=== PATIENT | female | born 1955 | race Caucasian/White ===

== ENCOUNTER 2016-10-23 05:18 | Observation (INO) | payer OTHER ==
[2016-10-23] MEDS ORDERED: ONDANSETRON 4 MG/2 ML VIAL IVP ONE (05:28)
[2016-10-23] MEDS ORDERED: NS 500 ML IV ONE (05:28)
--- NOTE | 2016-10-23 05:28 | EDPHY ---
H & P Stated Complaint: irregular HR, nausea, dizzy HPI/ROS: HPI CHIEF COMPLAINT: Chest discomfort, nausea, lightheadedness, irregular heart rate HISTORY OF PRESENT ILLNESS: this patient very pleasant 61-year-old female, she does have significant past medical history for GERD, presents to the emergency room with sudden onset at 3:00 a.m. she woke up with a discomfort describes a fullness in her chest with associated nausea, anxiety and noticed that her pulse was very irregular. She felt lightheaded. She tells me over the past few months that she has had some intermittent chest discomfort and at 1 point the pain radiated down her left arm. She did make an appointment with Cardiology however that is upcoming. She does tell me that she has a family history of coronary artery disease with an TN in her dad at age 55. She has never had a stress test or a cardiac evaluation. upon arrival here in the emergency room she appears anxious, she is complaining of discomfort in her chest described as a fullness, and nausea. Past Medical History:GERD Past Surgical History: denies significant surgical history Social History: denies use of drugs alcohol tobacco products, works as an RN at [employer] Family History: noncontributory ROS REVIEW OF SYSTEMS: A comprehensive 10 point review of systems is otherwise negative aside from elements mentioned in the history of present illness. Exam Constitutional triage nursing summary reviewed, vital signs reviewed, awake/ alert. Eyes normal conjunctivae and sclera, EOMI, PERRLA. HENT normal inspection, atraumatic, moist mucus membranes, no epistaxis, neck supple/ no meningismus, no raccoon eyes. Respiratory clear to auscultation bilaterally, normal breath sounds, no respiratory distress, no wheezing. Cardiovascular rate normal, regular rhythm, no murmur, no edema, distal pulses normal. Gastrointestinal soft, non-tender, no rebound, no guarding, normal bowel sounds, no distension, no pulsatile mass. Genitourinary no CVA tenderness. Musculoskeletal no midline vertebral tenderness, full range of motion, no calf swelling, no tenderness of extremities, no meningismus, good pulses, neurovascularly intact. Skin pink, warm, & dry, no rash, skin atraumatic. Neurologic awake, alert and oriented x 3, AAOx3, moves all 4 extremities equally, motor intact, sensory intact, CN II-XII intact, normal cerebellar, normal vision, normal speech. Psychiatric normal mood/affect. Heme/Lymph/Immune no lymphadenopathy. Differential diagnosis includes but is not limited to: ACS, atypical chest pain , pneumothorax, pneumonia, pulmonary embolism, aortic dissection, congestive heart failure, tumor, musculoskeletal pain, esophageal pain, GERD, peptic ulcer disease, pancreatitis Medical Decision Making:This patient had an IV established obtain blood work she will have a chest x-ray, EKG, cardiac marker. given her nausea and discomfort chest should be given nitroglycerin full-dose aspirin IV fluids and Zofran. Re-evaluation: EKG interpretation by me on record in [employer] system. Impression Time of EKG 5:36 a.m., this is sinus rhythm rate in 91, there is subtle ST flattening in lead 2 3 AVF there are P waves present this EKG. There is a sinus arrhythmia noted. Otherwise I do not appreciate acute ischemic changes specifically there is no ST elevation, there is also noted to be slight ST depression in V5 and V4. ED x-ray Chest one view: negative for acute cardiopulmonary disease. Image interpreted by myself. 0643: I spoke with the hospitalist service Dr. Breaux. who will see and admit this patient. Reason for admission is chest fullness relieved by nitroglycerin. In the emergency room she did have a nitroglycerin which improved her chest discomfort. She was given full-dose aspirin. She is now resting comfortably and chest pain free. Her EKG is not normal and does show some very subtle ST depression V4 V5 lead 2, 3 and aVF concerning for possible ischemia. Given her family history of cardiac disease and history over the past few months of discomfort in her chest and now this situation in the emergency room with chest discomfort with EKG changes and relieved by nitro I feel that it is best to admit her for rule out ACS. For cardiology to see. Source: Patient - Personal History Current Tetanus Diphtheria and Acellular Pertussis (TDAP): Yes - Medical/Surgical History Hx Asthma: No Hx Chronic Respiratory Disease: No Hx Diabetes: No Hx Cardiac Disease: No Hx Renal Disease: No Hx Cirrhosis: No Hx Alcoholism: No Hx HIV/AIDS: No Hx Splenectomy or Spleen Trauma: No Other PMH: R knee surgery - Social History Smoking Status: Never smoked Constitutional: Initial Vital Signs Temperature (C) 36.8 C 10/23/16 05:23 Heart Rate 93 10/23/16 05:23 Respiratory Rate 20 10/23/16 05:23 Blood Pressure 139/103 H 10/23/16 05:23 O2 Sat (%) 95 10/23/16 05:23 O2 Delivery Mode Nasal Cannula O2 (L/minute) 2 Allergies/Adverse Reactions: diphenhydramine HCl [From Benadryl] Allergy (Verified 10/23/16 05:22) Sulfa (Sulfonamide Antibiotics) Allergy (Verified 10/23/16 05:22) Home Medications: Medication Instructions Recorded Omeprazole [Prilosec 20 mg] 20 mg PO DAILY 05/13/16 buPROPion SR [Wellbutrin 150mg SR 150 mg PO DAILY 05/13/16 (*)] Aspirin [Aspirin 325 mg (*)] 325 mg PO DAILY 10/23/16 SUMAtriptan [Imitrex 50 MG (*)] 100 mg PO DAILY PRN 10/23/16 Medical Decision Making - Data Points Laboratory Results: Laboratory Results 10/23/16 05:02 10/23/16 05:02 Medications Given: Discontinued Medications Aspirin Buffered (Aspirin Ec) 325 mg PO ONCE ONE Stop: 10/23/16 07:04 Last Admin: 10/23/16 08:30 Dose: 325 mg Sodium Chloride (Ns) 500 mls @ 0 mls/hr IV ONCE ONE PRN Reason: As Directed Stop: 10/23/16 05:29 Last Admin: 10/23/16 05:30 Dose: 500 mls Nitroglycerin (Nitrostat) 0.4 mg SL EDNOW ONE Stop: 10/23/16 05:35 Last Admin: 10/23/16 05:40 Dose: 0.4 mg Ondansetron HCl (Zofran) 4 mg IVP EDNOW ONE Stop: 10/23/16 05:29 Last Admin: 10/23/16 05:30 Dose: 4 mg Departure - Departure Disposition: [facility] Acute Clinical Impression: Chest pain Qualifiers: Chest pain type: unspecified Qualifier Code: (R07.9) Chest pain, unspecified Condition: Fair
[2016-10-23] MEDS ORDERED: NITROGLYCERIN 0.4 MG BTL SL ONE ×2 (05:34→19:14)
--- NOTE | 2016-10-23 05:38 | CPEKG ---
Heart Rate: 91 RR Interval: 659 P-R Interval: 152 QRSD Interval: 90 QT Interval: 364 QTC Interval: 448 P [place]: 67 QRS [place]: 56 T Wave [place]: 4 EKG Severity - ABNORMAL ECG - EKG Impression: SINUS RHYTHM EKG Impression: SUPRAVENTRICULAR BIGEMINY EKG Impression: LOW VOLTAGE IN FRONTAL LEADS Electronically Signed By: John Loomis 25-Oct-2016 08:36:10
[2016-10-23 05:55] LABS: % IMMATURE GRANULYOCYTES 0.2 % (0.0-1.1); ABSOLUTE IMMATURE GRANULOCYTES 0.01 10^3/uL (0.00-0.10); ADD DIFF? NO; ADD MORPH? NO; ADD SCAN? NO; ATYPICAL LYMPHOCYTE FLAG 10 (0-99); FRAGMENT RBC FLAG 0 (0-99); HEMATOCRIT 41.5 % (38.0-47.0); HEMOGLOBIN 14.4 g/dL (12.6-16.3); LEFT SHIFT FLG 0 (0-99); LIPEMIA HEMOLYSIS FLAG 90 (0-99); MEAN CELL HEMOGLOBIN 32.4 pg (27.9-34.1); MEAN CELL HEMOGLOBIN CONCENTR. 34.7 g/dL (32.4-36.7); MEAN CELL VOLUME 93.5 fL (81.5-99.8); MEAN PLATELET VOLUME 10.4 fL (8.7-11.7); PLATELET CLUMPS FLAG 10 (0-99); PLATELET COUNT 253 10^3/uL (150-400); RED BLOOD CELL COUNT 4.44 10^6/uL (4.18-5.33); RED CELL DISTRIBUTION WIDTH 12.1 % (11.5-15.2)
[2016-10-23 06:05] LABS: INR 0.91 (0.83-1.16); PROTIME(PATIENT) 12.1 SEC (12.0-15.0)
[2016-10-23 06:06] LABS: APTT 25.2 SEC (23.0-38.0)
[2016-10-23 06:17] LABS: ALANINE AMINOTRANSFERASE 36 IU/L (9-52); ALBUMIN 4.7 g/dL (3.5-5.0); ALKALINE PHOSPHATASE 95 IU/L (38-126); ANION GAP 14 mEq/L (8-16); ASPARTATE AMINOTRANSFERASE 27 IU/L (14-46); BILIRUBIN,TOTAL 0.7 mg/dL (0.1-1.4); BILIRUBIN-CONJUGATED 0.6 mg/dL (0.0-0.5); BILIRUBIN-UNCONJUGATED 0.1 mg/dL (0.0-1.1); CALCIUM 9.3 mg/dL (8.5-10.4); CARBON DIOXIDE 24 mEq/l (22-31); CHLORIDE 106 mEq/L (97-110); CREATININE 0.7 mg/dL (0.6-1.0); GLOMERULAR FILTRATION RATE > 60; GLUCOSE 89 mg/dL (70-100); SODIUM 144 mEq/L (134-144); TOTAL PROTEIN 7.9 g/dL (6.3-8.2)
[2016-10-23 06:29] LABS: CREATINE KINASE-MB FRACTION 0.95 ng/mL (0-3.19); TROPONIN I < 0.012 ng/mL (0-0.034)
[2016-10-23] MEDS ORDERED: ONDANSETRON 4 MG/2 ML VIAL IVP PRN (07:01)
[2016-10-23] MEDS ORDERED: ACETAMINOPHEN 325 MG TAB PO PRN (07:01)
[2016-10-23] MEDS ORDERED: ONDANSETRON DISINTEGRATING 4 MG TAB PO PRN (07:01)
[2016-10-23] MEDS ORDERED: PROMETHAZINE HCL 25 MG/ML INJ IVP PRN (07:01)
[2016-10-23] MEDS ORDERED: ASPIRIN EC 325 MG TAB PO ONE (07:03)
--- NOTE | 2016-10-23 07:49 | GHP ---
[f rep st] HISTORY AND PHYSICAL DATE OF ADMISSION: 10/23/2016 DATE OF EVALUATION: 10/23/2016 CHIEF COMPLAINT: Chest fullness. HISTORY OF PRESENT ILLNESS: A 61-year-old female, who awoke at 3 a.m. with a sensation of palpitatio ns, tachycardia, chest fullness. 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 This co ntinued for a few hours until she decided to come into the hospital. On arrival to the emergency dep artment, she received Zofran, as well as nitroglycerin and her symptoms almost immediately abated. T hese were associated with some nausea. No vomiting. No shortness of breath. No lightheadedness. N o radiation of the discomfort. She already has an outpatient appointment to see Dr. Stock in November. This is because she had p reviously awoken with 2 episodes of chest pain radiating to her left arm. These have not been as sev ere as what she experienced today. PAST MEDICAL/SURGICAL HISTORY: 1. GERD. 2. Migraines 2 years ago, then an additional migraine about 1 month ago. 3. Right TKA. MEDICATIONS: Please see medication reconciliation. ALLERGIES: Benadryl and sulfa. FAMILY HISTORY: Father had an MD at age 55. SOCIAL HISTORY: She occasionally drinks. She does not smoke. She is an employee in the hospital. REVIEW OF SYSTEMS: A 10-point review of systems is conducted and is negative except for HPI. PHYSICAL EXAM: VITAL SIGNS: Blood pressure is 106/82, heart rate 84, respiration rate 16, saturatin g 100% on 2 L. Temperature 36.8. GENERAL: The patient is a very pleasant female who is resting in bed comfortably in no acute distress. HEENT: Shows her to be normocephalic, atraumatic. CARDIOVASC ULAR: Regular rate and rhythm. No murmurs, rubs, or gallops. No elevated JVD. No lower extremity edema. PULMONARY: Lungs clear to auscultation bilaterally. She is not in any respiratory distress. ABDOMEN: Shows her to be soft, nontender, nondistended. SKIN: No rash. : No Sims. NEUROLOG IC: Shows her to be alert and oriented x3. She is moving all extremities. PSYCHIATRIC: Normal moo d and affect. LABS: Basic metabolic panel is normal. Troponin is negative. LFTs are normal. INR is 0.91. CBC i s normal. DATA: 1. Chest x-ray, which I personally reviewed and interpreted, shows nothing acute. 2. EKG, which I personally reviewed and interpreted, shows mild ST depressions in leads II, III, F. Otherwise, she has sinus rhythm. She has a few PACs. IMPRESSION AND PLAN: 1. Chest pain: Trend troponins. Monitor on telemetry. She has a notable family history. Will con sult Cardiology. Further recommendations pending her clinical course. 2. Palpitations: Will monitor her on telemetry. She has premature atrial contractions seen on her EKG. 3. Gastroesophageal reflux disease: Prilosec. 4. Code status is full. 5. Venous thromboembolism risk is low. /[id number]/MODL
--- NOTE | 2016-10-23 09:13 | DX ---
Portable Chest at 0539 hours History: Chest pain. Comparison: None available. Findings: There is minimal central peribronchial thickening without focal consolidation, pneumothorax , or pleural effusion. Heart size is normal. Right epicardial fat pad is noted. The bones are normal. Radiopaque structure overlying the neck just left of midline is likely related to artifact external to the patient. Impression: 1. Probable mild bronchitis/airways disease. 2. Radiopaque foreign object overlying the left neck, most likely related to artifact external to the patient.
[2016-10-23 11:48] LABS: CHOLESTEROL 248 mg/dL (140-220); CHOLESTEROL/HDL RATIO 4.28 RATIO (1.00-4.44); HIGH DENSITY LIPOPROTEIN 58 mg/dL (40-85); LDL/HDL RATIO 2.57 RATIO (1.00-3.22); LOW DENSITY LIPOPROTEIN 149 mg/dL (80-100); NON-HIGH DENSITY LIPOPROTEIN 190 mg/dL (90-129); TRIGLYCERIDE 209 mg/dL (35-135); VERY LOW DENSITY LIPOPROTEINS 41 mg/dL (8-25)
--- NOTE | 2016-10-23 11:55 | GCON ---
[f rep st] CONSULTATION CARDIOLOGY CONSULTATION DATE OF CONSULTATION: 10/23/2016 CHIEF COMPLAINT: Chest pain and palpitations. HISTORY OF PRESENT ILLNESS: We are asked by Dr. Breaux to visit with the patient. 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 She does have a family history, with her father having an MD at age 55. For the past 2 months, she has had 3 separate episodes of chest discomfort. The 1st woke her up from sleep and she noticed left chest pain with radiation to the left arm. Symptoms lasted for about 5 minute. A few weeks later, she had a similar episode waking her up from sleep with chest pain radiating to the arm. This lasted 10 minutes. Early this morning, around 3:00 a.m., she woke up with chest fullness, nausea, and palpitations. She felt generally unwell. She did not have abdominal pain, nor did she vomit. No diarrhea. She did not feel diaphoretic. Symptoms waxed and waned for approximately 2 hours. They were not relieved by drinking water. She therefore presented to the Emergency Department. In the department, she received Zofran and nitroglycerin which essentially resolved her symptoms. She is now admitted for further evaluation and management. She does report that she had associated mild shortness of breath but has not had syncope or lower extremity edema. In general, she is very active, swimming , hiking, skiing, with absolutely no cardiovascular symptoms. She has not had recent chest or arm trauma. She has no rash in the area. She does have a history of shingles, but this was on the right posterior shoulder. REVIEW OF SYSTEMS: A full 10-point review of systems is negative, except that which is performed above. Additionally, she did have a bat bite over the summer , received rabies vaccination, and was profoundly fatigued related to this, but she states that this has essentially resolved, and she now feels back to baseline level of energy. ALLERGIES: Diphenhydramine and sulfa. PAST MEDICAL HISTORY: 1. GERD on proton pump inhibitor therapy. She sees Dr. Plascencia. 2. Migraine headaches. 3. Status post right total knee arthroplasty. OUTPATIENT MEDICATIONS: Aspirin 325 mg daily, Imitrex p.r.n., Prilosec 20 mg daily. I am not sure she still taking Wellbutrin. 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 She does not smoke cigarettes, but did previously smoke and quit 30 years ago. She drinks alcohol occasionally and not heavily. FAMILY HISTORY: Father had an MD at age 55. PHYSICAL EXAM: VITAL SIGNS: Blood pressure 144/103, heart rate 77, respiratory rate 16, oxygen saturation 93% on room air, she is afebrile. GENERAL: A well-appearing middle-aged female in no acute distress. HEENT: Sclerae clear, free of jaundice. Mucous members are moist. Normocephalic and atraumatic. CARDIOVASCULAR: JVP less than 10. Carotids equal and 2+ without bruit. Regular rate and rhythm without murmur, rub, or gallop. LUNGS: Clear to auscultation bilaterally without wheezes, rhonchi, or rales. ABDOMEN: Soft , nontender, nondistended without bruits, masses, or hepatosplenomegaly. EXTREMITIES: Warm and perfused without cyanosis, clubbing, or edema. NEURO: Alert and oriented x3 without gross focal neurologic deficits. TELEMETRY: Normal sinus rhythm. LABORATORY DATA: CBC is normal. Coagulation parameters are normal. Comprehensive metabolic panel is normal, except for a minimally elevated conjugated bilirubin at 0.6. Troponin negative x2. BNP 62. Lipase 141. EKG reviewed by me: Sinus rhythm with borderline inferolateral ST depression. She did have PACs. Chest x-ray reviewed by me: Probable mild bronchitis. ASSESSMENT AND PLAN: A 61-year-old female with a cardiac risk factor of family history. She presents with chest pain that is somewhat atypical for angina. Troponins have been negative thus far, but her 2nd troponin was drawn only 4 hours after onset of chest discomfort. A 3rd troponin is pending. Her EKG is subtly abnormal, but without significant ST elevation or depression. She is currently symptom-free. 1. Chest pain: Mostly atypical for angina. If her 3rd troponin at noon is negative, she will have a treadmill stress test for further risk stratification. I have also ordered an echocardiogram. She has received aspirin. Also check lipids. 2. Reflux: This could also be the etiology for her chest discomfort, especially since she has having nocturnal symptoms. If her cardiac workup is normal, she may require further GI evaluation. 3. Hypertension here: She does not have a history of hypertension. We will follow this. I have not initiated any medications. Thank you for allowing us to participate in this patient's care. We will follow with you. /[id number]/MODL MTDD
--- NOTE | 2016-10-23 13:52 | ECHO ---
[id number] + + [address] : : [place] [address] : : [phone] + Adult Echocardiographic Report + --------+ :Name: TOYIN SOTO MStudy Date: 10/23/2016 11:55 AM : : Hospital Admission Number: [id number] Locat ion: 207: :: 1955 Gender: Female Height: 60 in : :Age: 61 yrs Race: WH Weight: 150 l b : :Reason For Study: Eval LV Fx : : BSA: 1.7 mete rs2 : :History: Chest Pain, Palpitations : + --------+ MMode/2D Measurements & Calculations IVSd: 0.87 cm LVIDd: 3.7 cm FS: 41.6 % Ao root diam: 2.5 cm LVPWd: 0.84 cm LVIDs: 2.2 cm EDV(Teich): 57.8 ml ACS: 1.4 cm ESV(Teich): 15.4 ml EF(Teich): 73.3 % Normal Measurement Values: + + :LVIDd (3.5-5.7cm) IVSd (0.6-1.1cm) LVPWd (0.6-1.1cm) Aortic Root (2.0-3.7cm)Left Atrium (1.5-4.0cm): :LV Vol(d) (76-115ml) LV Vol(s) (29-48ml) Ejec Fraction (50-65%)PV Luis (0.6- 1.2m/s) TV Luis (0.4-1.0m/s) : :MV E Luis (0.8-1.0m/s)MV A Luis (0.3-1.0m/s)LVOT Luis (0.7-1.2m/s) Asc Ao Luis ( 0.9-1.8m/s) : + + Doppler Measurements & Calculations MV E max luis: Ao V2 max: LV V1 max: TR max luis: 79.0 cm/sec 139.8 cm/sec 104.1 cm/sec 243.0 cm/sec MV A max luis: Ao max PG: LV V1 max PG: TR max P.2 cm/sec 7.8 mmHg 4.3 mmHg 23.6 mmHg MV E/A: 1.4 RAP systole: 5.0 mmHg RVSP(TR): 28.6 mmHg Left Ventricle The left ventricle is normal in size. There is normal left ventricular wall thickness. The left ventricular ejection fraction is normal. Ejection Fraction = 74%. No regional wall motion abnormalities noted. Right Ventricle The right ventricle is normal in size and function. Atria The left atrial size is normal. Right atrial size is normal. Mitral Valve The mitral valve is normal in structure and function. There is no evidence of mitral valve prolapse. There is no mitral valve stenosis. There is trace mitral regurgitation. Tricuspid Valve Normal tricuspid valve. There is trace tricuspid regurgitation. Right ventricular systolic pressure is normal. Aortic Valve There is mild focal calcification of the non-coronary cusp of the aortic valve. The aortic valve is trileaflet. There is no aortic stenosis. There is no aortic insufficiency. Pulmonic Valve The pulmonic valve is normal in structure and function. There is no pulmonic valvular regurgitation. Great Vessels The aortic root is normal size. Pericardium/Pleural There is no pericardial effusion. Conclusion A complete two-dimensional transthoracic echocardiogram was performed (2D, M-mode, Doppler and color flow Doppler). Subcostal views not performed The left ventricular ejection fraction is normal. Ejection Fraction = 74%. No regional wall motion abnormalities noted. The right ventricle is normal in size and function. The left atrial size is normal. The mitral valve is normal in structure and function. There is trace mitral regurgitation. Normal tricuspid valve There is trace tricuspid regurgitation. Right ventricular systolic pressure is normal. There is mild focal calcification of the non-coronary cusp of the aortic valve. The aortic valve is trileaflet. There is no aortic stenosis. There is no pericardial effusion. Final Reading Physician: Dr Eloisa Wilson electronically signed on 10/23/2016 01:51 PM Ordering Physician: Eloisa Wilson Performed By: Sanju Nelson, [facility]
--- NOTE | 2016-10-23 18:04 | HOSPPROG ---
Hospitalist Progress Note Assessment/Plan: EVENING ROUNDS NOTE The patient is feeling well without recurrence of chest pain, no palpitations or shortness of breath. Her vital signs are stable she is in a sinus rhythm on threat monitoring analyst. She looks very comfortable in bed with skin warm and dry. The patient's troponins have all been negative. She has had an echocardiogram showing an excellent ejection fraction. I do not have report from the stress testing at this point. However Dr. Wilson has ordered cardiac CT angiography and we are waiting for that study to be done hopefully this evening. I have spoken with the patient and she is comfortable with the diagnostic process so far. I will review results with her when we have them. Objective: Vital Signs Temp Pulse Resp BP Pulse Ox 36.7 C 81 16 123/88 H 93 10/23/16 15:11 10/23/16 15:11 10/23/16 15:11 10/23/16 15:11 10/23/16 15:11 10/22/16 10/23/16 10/24/16 06:59 06:59 06:59 Intake Total 500 Balance 500 PT 12.1 SEC (12.0-15.0) 10/23/16 05:02 INR 0.91 (0.83-1.16) 10/23/16 05:02 ICD10 Worksheet Patient Problems: Problems Problem Status Diagnosed Chest pain Acute
[2016-10-23] MEDS ORDERED: IOPAMIDOL (ISOVUE 370) 100 ML BTL IV ONE (18:42)
[2016-10-23] MEDS ORDERED: METOPROLOL TARTRATE 5 MG/5 ML INJ ONE (19:14)
--- NOTE | 2016-10-24 01:07 | CPR ---
[f rep st] NONINVASIVE CARDIAC PROCEDURE REPORT DATE OF PROCEDURE: 10/23/2016 PROCEDURE: Stress test INDICATIONS: Chest pain. DESCRIPTION OF PROCEDURE: Informed consent was obtained. The patient was established to the telemet ry monitor. She underwent stress testing with standard Davis protocol. Frequent blood pressure ld toring and continuous telemetry and continuous pulse oximetry were performed. COMPLICATIONS: None. FINDINGS: The patient exercised for 6 minutes on the Davis protocol, achieving 6.9 METS. The restin g heart rate was 87 beats per minute. Peak heart rate 142 beats per minute, which represents 88% of age-predicted maximal heart rate. Resting blood pressure 132/86 mmHg with a peak blood pressure 160/ 88. Resting EKG shows sinus rhythm with very subtle inferolateral ST depression. With exercise, these ba seline abnormalities did not worsen. There were rare PACs. Oxygen saturation remained above 90% thr oughout the test. She did complain of 1/10 chest and neck fullness that spread over her chest progre ssively throughout the test. This was relieved with nitroglycerin in recovery. CONCLUSIONS: Abnormal stress test in that the patient has an abnormal resting EKG and did have chest discomfort with exercise, relieved with nitroglycerin. For further evaluation, she will have a CT c oronary angiogram. /[id number]/MODL
[2016-10-24 04:24] VITALS: O2SAT 92
[2016-10-24 06:18] LABS: % IMMATURE GRANULYOCYTES 0.2 % (0.0-1.1); ABSOLUTE IMMATURE GRANULOCYTES 0.01 10^3/uL (0.00-0.10); ADD DIFF? NO; ADD MORPH? NO; ADD SCAN? NO; ATYPICAL LYMPHOCYTE FLAG 20 (0-99); FRAGMENT RBC FLAG 0 (0-99); HEMATOCRIT 40.1 % (38.0-47.0); HEMOGLOBIN 13.8 g/dL (12.6-16.3); LEFT SHIFT FLG 0 (0-99); LIPEMIA HEMOLYSIS FLAG 90 (0-99); MEAN CELL HEMOGLOBIN 32.5 pg (27.9-34.1); MEAN CELL HEMOGLOBIN CONCENTR. 34.4 g/dL (32.4-36.7); MEAN CELL VOLUME 94.6 fL (81.5-99.8); PLATELET CLUMPS FLAG 0 (0-99); PLATELET COUNT 260 10^3/uL (150-400); RED BLOOD CELL COUNT 4.24 10^6/uL (4.18-5.33); RED CELL DISTRIBUTION WIDTH 12.2 % (11.5-15.2)
[2016-10-24 06:47] LABS: ANION GAP 10 mEq/L (8-16); CALCIUM 9.3 mg/dL (8.5-10.4); CARBON DIOXIDE 25 mEq/l (22-31); CHLORIDE 105 mEq/L (97-110); CREATININE 0.7 mg/dL (0.6-1.0); GLOMERULAR FILTRATION RATE > 60; GLUCOSE 79 mg/dL (70-100); POTASSIUM 4.5 mEq/L (3.5-5.2); SODIUM 140 mEq/L (134-144)
[2016-10-24 07:58] VITALS: BP 109/68; PULSE 62; RESP 17; TEMP 97.9
[2016-10-24] MEDS ORDERED: NON-FORMULARY NEW DRUG (Omeprazole [Prilosec 20 Mg] 20 MG) PO SCH (09:00)
[2016-10-24] MEDS ORDERED: ASPIRIN 325 MG TAB PO SCH (09:00)
[2016-10-24] MEDS ORDERED: buPROPion SR 150 MG TAB PO SCH (09:00)
[2016-10-24] MEDS ORDERED: SUMAtriptan 50 MG TAB PO PRN (09:00)
[2016-10-24] MEDS ORDERED: PANTOPRAZOLE SODIUM 40 MG TAB PO SCH (09:30)
--- NOTE | 2016-10-24 09:42 | CT ---
CT Coronary Angiogram Prospective Gating History: Evaluate for coronary artery disease. Atypical chest pain with exertion. Equivocal exercise treadmill test. Technique: Postprocessing was performed. Volume rendered images were reviewed and vessel analysis was performed of the coronary arteries. Images were obtained on a [address] scanner. With the IV administration of 85 mL Isovue-370 IV contrast, serial axial CT images were obtained through the heart utilizing th in slice technique and prospective gating. Images were obtained after premedication with metoprolol u tilizing two 5 mg IV doses. Immediately prior to contrast portion of the study ,sublingual nitroglyce rin, 0.4mg, was administered. At the time of the CT, the heart rate was 72 bpm. Dose reduction techn iques were utilized. CT Angiogram of the Coronary Arteries: The overall quality of the study is very good. There is adequate visualization of the coronary arteries. The patient has a right dominant system wit h normal origins of the coronary arteries. Left main: No calcified or soft plaque is seen and there is no stenosis. Mid-distal LAD, D2 and D3 branches: No calcified or soft plaque is seen and there is no stenosis. Left circumflex and its OM branches: There is a small caliber left circumflex artery. There is domin ant obtuse marginal branch. Right coronary artery and its branches: No calcified or soft plaque is seen and there is no stenosis . The PDA and posterolateral branch off the distal right coronary artery appear to be normal. Cardiac Morphology: The right atrium is normal. The right ventricle is normal. The left atrium is normal. The left ventricle is normal. The valves are normal. Extracardiac soft tissues: There is no hilar or mediastinal lymphadenopathy. The pericardium is rowena l. No underlying pulmonary nodules are seen Impression: Normal coronary arterial system as detailed above. All measurements of stenoses are based on NASCET criteria. This study was reviewed in the radiology Department Dr. Abdirahman Long.
--- NOTE | 2016-10-24 11:01 | PDCARPN ---
Cardiology Progress Note Assessment/Plan: Assessment/plan: 61-year-old female with a history of GERD. Admitted with chest fullness and palpitations. She did have some PACs, which may be symptomatic. Her treadmill test was equivocal, in that she had chest discomfort and palpitations during exercise. Because of this, she went on to have a CT coronary angiogram which is normal. Her echocardiogram is also normal. Troponins have been negative. 1. Chest pain: Differential diagnosis includes coronary vasospasm versus small vessel ischemia versus reflux. I favor the 3rd possibility. She has seen Dr. Plascencia in the past agrees to go back for further evaluation. 2. Dyslipidemia: Her LDL slightly elevated. Her calculated 10 year cardiovascular risk is 2.5%. This point she does not require statin therapy. She will continue to follow [employer] style eating plan and exercise regularly. 3. GERD: Follow-up with Dr Plascencia as above. Stable discharge from a cardiac standpoint. She may follow up with us on an as- needed basis. 10/24/16 11:00 Subjective: Shasha has not had chest fullness or palpitations overnight. Reviewed/Discussed With: hospitalist Objective: Vital Signs (8 Hrs) Temp Pulse Resp BP Pulse Ox 10/24/16 07:54 36.6 C 62 17 109/68 92 10/24/16 04:22 36.7 C 60 18 98/66 L 92 Intake/Output (24 Hrs) 10/23/16 10/24/16 10/25/16 05:59 05:59 05:59 Intake Total 1700 Balance 1700 Intake: Oral (ml) 1200 IV Infused (ml) 500 Other: Weight 53.1 kg Intake Quantity Yes Sufficient Number of Voids Toilet 2 No acute distress. JVP less than 10 regular rate and rhythm without murmur or gallop Lungs clear to auscultation bilaterally without rales Extremities are warm well perfused without cyanosis clubbing or edema CT coronary angiogram reviewed with Radiology. No coronary plaque. Normal origins of the right and left coronary artery. No significant stenosis. Result Diagrams: 10/24/16 05:42 10/24/16 05:42 Cardiac Labs: Cardiac Lab Results (72 Hrs) 10/23/16 10/23/16 10/23/16 19:53 12:45 09:05 Troponin I < 0.012 < 0.012 < 0.012 Telemetry: Normal sinus rhythm ICD10 Worksheet Patient Problems: Problems Problem Status Diagnosed Chest pain Acute
--- NOTE | 2016-10-25 04:20 | GDS ---
[f rep st] DISCHARGE SUMMARY DISCHARGE DIAGNOSES: 1. Chest pain, thought noncardiac based on workup. 2. Dyslipidemia. 3. Gastroesophageal reflux disease. HISTORY OF PRESENT ILLNESS: A 61-year-old female with a history of GERD, admitted with complaints of chest pain. For details of patient's initial presentation, please see the history and physical date d 10/23/2016. CONSULTATIVE SERVICES: Cardiology, Dr. Wilson. PROCEDURES: On 10/23/2016, patient had a cardiac stress test that was read as abnormal based on EKG. The patient was then sent for CT, cardiac angiography that shows a normal coronary artery. HOSPITAL COURSE: 1. Chest pain. The patient was ruled out and sent for stress testing the morning of presentation wi th an abnormal stress test. Based on the EKG, was sent for cardiac CT which was read the morning aft er presentation as normal. The patient was seen by Cardiology, and felt that likely her symptoms may be related to her gastroesophageal reflux disease. 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 2. Dyslipidemia. Patient has mild elevation in her lipid after discussion, consultation with Cardio logy. Decision has been made not to initiate statin therapy as her risk for cardiovascular complicat ions is low and instead, change her eating routine. 3. Gastroesophageal reflux disease. The patient is being continued on her outpatient medication reg imen and again, referred to follow with Dr. Plascencia in the next 1-2 weeks for post disposition eval uation and followup. TIME SPENT: I spent greater than 30 minutes in the planning and coordination of this discharge. MEDICATIONS AT THE TIME OF DISPOSITION: Please reference med rec printed on 10/24/2016. FOLLOWUP APPOINTMENTS: Include with Dr. Plascencia, as well as her primary care provider in the next 1-2 weeks. /[id number]/MODL
== END 2016-10-24 13:55 | disposition home or self-care (01) ==
LOC: INTOOBSV 06:36 → F2W 08:16
PROVIDERS: ADMIT Student in an Organized Health Care Education/Training Program; ATTEND Student in an Organized Health Care Education/Training Program
DX: R07.89 Other chest pain (principal); R94.39 Abnormal result of other cardiovascular function study; E78.5 Hyperlipidemia, unspecified; K21.9 Gastro-esophageal reflux disease without esophagitis; Z96.651 Presence of right artificial knee joint; G43.909 Migraine, unspecified, not intractable, without status migrainosus; I10 Essential (primary) hypertension
CPT/HCPCS: 71010; 75574; 93005; 93017; 93306; 96361; 96374; 99285; G0378; J2405; Q9967

== ENCOUNTER → 2017-07-25 | Outpatient (CLI) | payer OTHER | LOC: FIMAGING 09:06 | PROVIDERS: ATTEND Family Medicine | DX: Z12.31 Encounter for screening mammogram for malignant neoplasm of breast (principal); Z80.3 Family history of malignant neoplasm of breast | CPT/HCPCS: G0202 ==

== ENCOUNTER → 2017-12-05 | Outpatient (CLI) | payer OTHER | LOC: BMCIMAGING 07:15 | PROVIDERS: ATTEND Internal Medicine Gastroenterology | DX: R93.5 Abnormal findings on diagnostic imaging of other abdominal regions, including retroperitoneum (principal); R10.11 Right upper quadrant pain ==